=== PATIENT | female | born 1960 | race Caucasian/White ===

== ENCOUNTER → 2017-12-29 | Outpatient (CLI) | payer MEDICAID ==
[2017-12-29 16:48] LABS: Basophils % (A) 1 %; Eosinophils # (A) 0.1 k/uL (0-0.7); Eosinophils % (A) 2 %; HCT 46.7 % (34.0-46.0); HGB 15.3 gm/dL (11.4-16.0); Lymphocytes # (A) 1.3 k/uL (1.0-4.8); Lymphocytes % (A) 24 %; MCHC 32.7 g/dL (31.0-37.0); MCV 88.7 fL (80.0-100.0); Mean Platelet Volume 8.5; Monocytes # (A) 0.3 k/uL (0-1.0); Monocytes % (A) 5 %; Neutrophils # (A) 3.6 k/uL (1.3-7.7); Neutrophils % (A) 66 %; Platelet Count 232 k/uL (150-450); RBC 5.27 m/uL (3.80-5.40); WBC 5.5 k/uL (3.8-10.6)
[2017-12-29 17:26] LABS: ALT 26 U/L (9-52); AST 20 U/L (14-36); Albumin 4.6 g/dL (3.5-5.0); Alkaline Phosphatase 78 U/L (38-126); Anion Gap 11 mmol/L; Blood Urea Nitrogen 14 mg/dL (7-17); Calcium 10.2 mg/dL (8.4-10.2); Carbon Dioxide 25 mmol/L (22-30); Chloride 102 mmol/L (98-107); Cholesterol 247 mg/dL (<200); Glucose 90 mg/dL (74-99); HDL Cholesterol 76 mg/dL (40-60); LDL Cholesterol,Calculated 159 mg/dL (0-99); Potassium 5.2 mmol/L (3.5-5.1); Sodium 138 mmol/L (137-145); Total Bilirubin 0.6 mg/dL (0.2-1.3); Total Protein 7.3 g/dL (6.3-8.2); Triglycerides 62 mg/dL (<150)
[2017-12-29 17:40] LABS: T4, Free (Free Thyroxine) 1.26 ng/dL (0.78-2.19)
== END | disposition home or self-care (01) ==
LOC: LABWHC1 15:49
PROVIDERS: ATTEND Family Medicine
DX: E03.9 Hypothyroidism, unspecified (principal)
CPT/HCPCS: 36415; 80053; 80061; 84439; 84443; 85025

== ENCOUNTER → 2018-02-05 | Outpatient (CLI) | payer MEDICAID ==
--- NOTE | 2018-02-07 11:43 | MM ---
Reason for exam: screening (asymptomatic). Last mammogram was performed 1 year and 7 months ago. History: Patient is postmenopausal. Family history of premenopausal breast cancer in maternal cousin at age 36, premenopausal breast cancer in mother, and premenopausal breast cancer in maternal grandmother at age 50. Taking other hormone for 6 months. Physical Findings: A clinical breast exam by your physician is recommended on an annual basis and results should be correlated with mammographic findings. MG 3D Screening Mammo W/Cad Bilateral CC and MLO view(s) were taken. Prior study comparison: June 28, 2016, bilateral MG 3d screening mammo w/cad. June 26, 2015, bilateral MG screening mammo w CAD. There are scattered fibroglandular densities. No significant changes when compared with prior studies. ASSESSMENT: Benign, BI-RAD 2 RECOMMENDATION: Routine screening mammogram of both breasts in 1 year.
== END | disposition home or self-care (01) ==
LOC: RADMAMWWP 16:48
PROVIDERS: ATTEND Family Medicine
DX: Z12.31 Encounter for screening mammogram for malignant neoplasm of breast (principal); Z80.3 Family history of malignant neoplasm of breast
CPT/HCPCS: 77063; 77067

== ENCOUNTER → 2021-04-19 | Outpatient (CLI) | payer MEDICAID ==
[2021-04-19 19:51] LABS: HCT 42.9 % (37.2-46.3); HGB 13.7 g/dL (12.0-15.0); MCHC 31.9 g/dL (32.0-37.0); MCV 87.6 fL (80.0-97.0); Mean Platelet Volume 12.6 fL (9.5-12.2); Platelet Count 256 X 10*3/uL (140-440); RDW 13.2 % (11.5-14.5)
[2021-04-20 14:23] LABS: % Iron Saturation 18.16 (12.00-45.00); African American GFR (CKD) 94.7 (60.0-200.0); Albumin 4.7 g/dL (3.8-4.9); Albumin/Globulin Ratio 1.83 (1.60-3.17); Anion Gap 16.5 mmol/L (4.00-12.00); BUN/Creat Ratio 10.95 Ratio (12.00-20.00); Blood Urea Nitrogen 8.7 mg/dL (9.0-27.0); Calcium 9.6 mg/dL (8.7-10.3); Chol/HDL Ratio 3.88 Ratio; Globulin 2.5 g/dL (1.6-3.3); HDL Cholesterol 51.3 mg/dL (40.00-60.00); LDL Cholesterol,Calculated 132.6 mg/dL (0.0-131.0); Non-African American GFR(CKD) 81.7 (60.0-200.0); Potassium 4.8 mmol/L (3.5-5.5); T4, Free (Free Thyroxine) 1.81 ng/dL (0.800-1.800); Total Bilirubin 0.3 mg/dL (0.30-1.20); Total Protein 7.2 g/dL (6.2-8.2); Triglycerides 75.5 mg/dL (0.00-149.00); VLDL Calculation 15.1 mg/dL (5.00-40.00)
== END | disposition home or self-care (01) ==
LOC: LABWHC1 14:18
PROVIDERS: ATTEND Physician Assistant
DX: Z00.00 Encounter for general adult medical examination without abnormal findings (principal)
CPT/HCPCS: 36415; 80053; 80061; 82306; 82728; 83036; 83540; 83550; 84439; 84443; 85027

== ENCOUNTER → 2021-06-08 | Outpatient (CLI) | payer MEDICAID, OTHER | END | disposition home or self-care (01) | LOC: LABWHC1 09:22 | PROVIDERS: ATTEND Emergency Medicine | DX: Z20.822 Contact with and (suspected) exposure to COVID-19 (principal) | CPT/HCPCS: 87635 ==

== ENCOUNTER → 2021-06-09 | Outpatient (CLI) | payer MEDICAID, OTHER | END | disposition home or self-care (01) | LOC: LABWHC1 09:43 | PROVIDERS: ATTEND Emergency Medicine | DX: Z20.822 Contact with and (suspected) exposure to COVID-19 (principal) | CPT/HCPCS: 87635 ==

== ENCOUNTER → 2023-09-04 | Outpatient (CLI) | payer MEDICAID ==
[2023-09-04 14:42] LABS: HCT 43.7 % (34.0-46.0); HGB 14.7 gm/dL (11.4-16.0); MCH 29.5 pg (25.0-35.0); MCHC 33.6 g/dL (31.0-37.0); MCV 87.7 fL (80.0-100.0); Platelet Count 160 k/uL (150-450); RBC 4.98 m/uL (3.80-5.40); RDW 13.6 % (11.5-15.5); WBC 6.5 k/uL (3.8-10.6)
[2023-09-04 18:57] LABS: % Iron Saturation 23.58 (12.00-45.00); BUN/Creat Ratio 12.67 Ratio (12.00-20.00); Blood Urea Nitrogen 11.4 mg/dL (9.0-27.0); Carbon Dioxide 21.4 mmol/L (21.6-31.8); Chloride 102 mmol/L (96-109); Chol/HDL Ratio 3.71 Ratio; Glucose 85 mg/dL (70-110); Iron 79 UG/DL (50-170); LDL Cholesterol,Calculated 154.4 mg/dL (0.0-131.0); Sodium 139 mmol/L (135-145); Total Iron Binding Capacity 335 UG/DL (228-460)
[2023-09-04 18:58] LABS: ALT 16 U/L (8-44); AST 22 U/L (13-35); Albumin 4.7 g/dL (3.8-4.9); Albumin/Globulin Ratio 1.74 Ratio (1.60-3.17); Alkaline Phosphatase 84 U/L (41-126); Calcium 9.7 mg/dL (8.7-10.3); Globulin 2.7 g/dL (1.6-3.3); T4, Free (Free Thyroxine) 1.79 ng/dL (0.80-1.80); Total Bilirubin 0.7 mg/dL (0.3-1.2); Total Protein 7.4 g/dL (6.2-8.2)
== END | disposition home or self-care (01) ==
LOC: LABWHC1 11:56
PROVIDERS: ATTEND Family Medicine
DX: E03.9 Hypothyroidism, unspecified (principal); D64.9 Anemia, unspecified; Z79.899 Other long term (current) drug therapy
CPT/HCPCS: 36415; 80053; 80061; 82728; 83540; 83550; 84439; 84443; 84481; 85027

== ENCOUNTER → 2023-09-29 | Outpatient (CLI) | payer MEDICAID ==
--- NOTE | 2023-10-02 09:01 | MM ---
Reason for Exam: Screening (asymptomatic). Last mammogram was performed 5 year(s) and 8 month(s) ago. Patient History: Menarche at age 15. First Full-Term at age 24. Postmenopausal. Patient has history of breast feeding. Maternal grandmother had breast cancer, age 50. Maternal cousin had breast cancer, age 36. Mother had breast cancer. Risk Values: Keiry 5 year model risk: 2.8%. NCI Lifetime model risk: 13.2%. Prior Study Comparison: 06/26/2015 Bilateral Screening Mammogram, [facility]. 06/28/2016 Bilateral Screening Mammogram, [facility]. 02/05/2018 Bilateral Screening Mammogram, [facility]. Tissue Density: There are scattered areas of fibroglandular density. Findings: Analyzed By CAD. There is no suspicious group of microcalcifications or new suspicious mass in either breast. Of benign-appearing calcifications. Overall Assessment: Benign, BI-RAD 2 Management: Screening Mammogram of both breasts in 1 year. . Patient should continue monthly self-breast exams. A clinical breast exam by your physician is recommended on an annual basis. This exam should not preclude additional follow-up of suspicious palpable abnormalities. Note on Keiry scores and lifetime risk: 1. A Keiry score greater than 3% is considered moderate risk. If this is the case, consider specialist referral to assess eligibility for a risk reducing agent. 2. If overall lifetime risk for the development of breast cancer is 20% or higher, the patient may qualify for future screening with alternating mammogram and breast MRI. Electronically signed and approved by: Solitario Donovan M.D. Radiologis
== END | disposition home or self-care (01) ==
LOC: RADMAMWWP 14:13
PROVIDERS: ATTEND Family Medicine
DX: Z12.31 Encounter for screening mammogram for malignant neoplasm of breast (principal); Z80.3 Family history of malignant neoplasm of breast; Z78.0 Asymptomatic menopausal state
CPT/HCPCS: 77063; 77067

== ENCOUNTER → 2024-03-01 | Outpatient (CLI) | payer MEDICAID | END | disposition home or self-care (01) | LOC: LABWHC1 15:16 | DX: Z53.9 Procedure and treatment not carried out, unspecified reason (principal) ==

== ENCOUNTER → 2024-04-11 | Outpatient (CLI) | payer MEDICAID ==
[2024-04-11 16:19] LABS: ALT 12 U/L (8-44); AST 18 U/L (13-35); Albumin 4.7 g/dL (3.8-4.9); Albumin/Globulin Ratio 1.68 Ratio (1.60-3.17); Alkaline Phosphatase 87 U/L (41-126); Blood Urea Nitrogen 15.3 mg/dL (9.0-27.0); Calcium 9.6 mg/dL (8.7-10.3); Carbon Dioxide 23.7 mmol/L (21.6-31.8); Chloride 102 mmol/L (96-109); Chol/HDL Ratio 3.59 Ratio; Globulin 2.8 g/dL (1.6-3.3); Glucose 98 mg/dL (70-110); LDL Cholesterol,Calculated 160.8 mg/dL (0.0-131.0); Potassium 4.3 mmol/L (3.5-5.5); Sodium 139 mmol/L (135-145); T4, Free (Free Thyroxine) 1.36 ng/dL (0.80-1.80); Total Bilirubin 0.5 mg/dL (0.3-1.2); Total Protein 7.5 g/dL (6.2-8.2); VLDL Calculation 13.14 mg/dL (5.00-40.00)
== END | disposition home or self-care (01) ==
LOC: LABWHC1 09:13
PROVIDERS: ATTEND Family Medicine
DX: F51.04 Psychophysiologic insomnia (principal); E03.9 Hypothyroidism, unspecified; L30.9 Dermatitis, unspecified
CPT/HCPCS: 36415; 80053; 80061; 83036; 84439; 84443; 84481

== ENCOUNTER → 2025-01-28 | Outpatient (CLI) | payer MEDICAID ==
--- NOTE | 2025-01-28 13:57 | MM ---
Reason for Exam: Screening (asymptomatic). Last mammogram was performed 1 year(s) and 4 month(s) ago. Patient History: Menarche at age 15. First Full-Term at age 24. Postmenopausal. Patient has history of breast feeding. Maternal grandmother had breast cancer, age 50. Maternal cousin had breast cancer, age 36. Mother had breast cancer. Risk Values: Keiry 5 year model risk: 2.9%. NCI Lifetime model risk: 12.8%. Prior Study Comparison: 06/28/2016 Bilateral Screening Mammogram, [facility]. 02/05/2018 Bilateral Screening Mammogram, [facility]. 09/29/2023 Bilateral MG 3D screening mammo w/cad, [facility]. Tissue Density: There are scattered areas of fibroglandular density. Findings: Analyzed By CAD. Right breast: There is no suspicious group of microcalcifications or new suspicious mass. Left breast: There is no suspicious group of microcalcifications or new suspicious mass. Overall Assessment: Negative, BI-RAD 1 Management: Screening Mammogram of both breasts in [address] [facility] will attempt to contact patient to return for supplemental views and ultrasound if indicated. Patient should continue monthly self-breast exams. A clinical breast exam by your physician is recommended on an annual basis. This exam should not preclude additional follow-up of suspicious palpable abnormalities. Note on Keiry scores and lifetime risk: 1. A Keiry score greater than 3% is considered moderate risk. If this is the case, consider specialist referral to assess eligibility for a risk reducing agent. 2. If overall lifetime risk for the development of breast cancer is 20% or higher, the patient may qualify for future screening with alternating mammogram and breast MRI. [facility], , 01/28/2025 1:54 PM. Electronically signed and approved by: Florencio Varma DO
== END | disposition home or self-care (01) ==
LOC: RADMAMWWP 12:05
PROVIDERS: ATTEND Family Medicine
DX: Z12.31 Encounter for screening mammogram for malignant neoplasm of breast (principal); R92.323 Mammographic fibroglandular density, bilateral breasts; Z78.0 Asymptomatic menopausal state; Z80.3 Family history of malignant neoplasm of breast
CPT/HCPCS: 77063; 77067